=== PATIENT | female | born 1965 | race Caucasian/White ===

== ENCOUNTER 2016-11-28 23:20 | Emergency (ER) | payer OTHER ==
[~2016-11-28] VITALS: Ht 162.6 cm; Wt 76.4 kg
[~2016-11-28 23:20] MED LIST: ALBU8.5H2 INHALATION; AMIT150T PO; BUPR100T15 PO; BUPR1FIL3 SL; ESTR42.52 VAGINAL; HYDR-3797 PO; OMEP40CA36 PO
[2016-11-28 23:23] VITALS: BP 151/81; PULSE 107; RESP 18; O2SAT 96
--- NOTE | 2016-11-28 23:38 | ED.REPORT ---
HPI-Extremity Problem Upper Date of Service Nov 28, 2016 ED Provider: Dr. Pablo 50 y/o female with a hx of Raynaud's disease and polydrug use (currently on Suboxone) presents to the ED for pain management in her right hand fingers today. The pt is wearing a nitrile glove because she has an open wound on her right middle finger. She states "I can't take it off because I will expose my bone". Her fingers began turning a "dusky color" about 8 months ago. Since then , her Raynaud's rapidly progressed. She is seen by Dr. Branch, plastic surgeon, at the wound center. She also discusses pain management with Dr. Castellano who prescribed her Suboxone. The pt has an appointment with her PCP tomorrow but came in today because the pain was unbearable. Nursing Notes Stated Complaint: R HAND PAIN,WOUND NOT HEALING Chief Complaint: Extremity Trauma Nursing Notes Reviewed: Yes Allergies: Coded Allergies: Penicillins (Verified Allergy, Severe, swollen tongue, 11/28/16) propoxyphene (Verified Allergy, Severe, swollen hands, 11/28/16) NSAIDS (Non-Steroidal Anti-Inflamma (Verified Allergy, Unknown, effects peptic ulcers, 11/28/16) Scheduled Albuterol HFA (Proair HFA) 8.5 Gm Hfa.aer.ad 2 PUFFS INHALATION Q4H Amitriptyline (Amitriptyline) 150 Mg Tablet 150 MG PO HS Buprenorphine HCl/Naloxone HCl (Suboxone 8 mg-2 mg Sl Film) 1 Each Film 1 EACH SL BID Bupropion (Bupropion) 100 Mg Tablet 100 MG PO BID Estradiol (Estrace) 42.5 Gm Cream.appl 1 APPLIC VAGINAL mon, wed, sat Omeprazole (Omeprazole) 40 Mg Capsule.dr 40 MG PO DAILY Scheduled PRN Hydroxyzine Pamoate (HydrOXYzine Pamoate) 25 Mg Capsule 75 MG PO TID PRN PRN For Anxiety General Time Seen by MD: 23:38 Chief Complaint Finger injury right 2, Finger injury right 3, Finger injury right 4 Hx Obtained From: Patient Arrived By: Walk-in Onset Occurred: 5 - 8 hours ago Symptom Duration: Since onset Location: : Finger right 3 Quality: Painful Severity: Current: Severe Severity: Maximum: Severe Recent Healthcare: Recent doctor visit Past Medical History Past Medical History Raynaud's disease Hypertension Morbid obesity Chronic back pain Arthritis PTSD Past Surgical History Cholecystectomy Hysterectomy Appendectomy Smoking History Current Every Day Smoker Social History hx of Meth, Heroin and cocaine (currently on Suboxone) Alcohol Use: Denies alcohol use 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 Sees him every 3rd month. takes 2 vicodin 10 mg 4 times a day. Has been unhappy because she feels the effectiveness of vicodin is not working. No work or school Ambulatory Status Independent Review of Systems Reports: Pain in the 2nd, 3rd and 4th fingers on the right hand Reports: open wound on the 3rd right finger Complete sys rev & neg: except as marked. Physical Exam Initial Vital Signs Vital Signs (First) Date Time Temp Pulse Resp B/P Pulse Ox O2 Delivery O2 Flow Rate FiO2 11/28/16 23:23 35.9 107 18 151/81 96 Room Air Initial VS: Reviewed Head / Eyes: Atraumatic, Normocephalic, PERRL Neck: Supple, Non-tender, Full range of motion Respiratory: No respiratory distress Cardiovascular: Intact distal pulses Lower Extremities: Vascular intact, Neuro intact, No swelling, No tenderness Skin: Warm, Dry, No cyanosis Neurologic: Alert, Oriented, Nonfocal General/Constitutional: Awake, Alert, No acute distress Behavior: Positive: Anxious Wrist / Hand: Full range of motion Middle finger of the right hand is macerated inside the glove. The tissue is pale and vascular. The tip of her finger has an ulcer, extending down to the bone. Whitish distal phalanx visible. There is no proximal cellulitis. Interpretation & Diagnostics X-Ray Interpretation Xray Interpretation: Osteomyelitis X-Ray Ordered: Hand right Interpretation / Wet Read by: Wet read ED physician Re-Eval/Medical Decision Med Decision/Clinical Course 50-year-old with Raynaud's disease, and ongoing wound to the tip of the finger of the right hand. X-ray shows erosion and probably osteomyelitis of the tuft. Consideration still being given to a sympathectomy, but this appears to be likely require amputation ultimately. Follow-up with Dr. Branch. Follow-up with referral surgeon and rheumatology as planned. Given a dose of pain meds for tonight, but she will need ongoing pain management from her primary care doctors, and this was explained to her in detail. Discharged now in stable condition. Source of Hx: Old records Re-Evaluation/Progress : Time of Eval: 00:51 Re-Evaluation/Progress Note: Rechecked pt. Discussed imaging results, diagnosis and plan to discharge. Pt understands and agrees with the plan. F/U instruction and RTER warning given. All questions addressed. Counseled Regarding: Diagnosis, Need for follow-up, When/why to return to ED Discharge & Departure Impression: Primary Impression: Raynaud disease Additional Impressions: Chronic wound of extremity Chronic pain Osteomyelitis of finger Disposition: Home Discharge Condition All VS Reviewed: Yes Condition: Stable Additional Instructions: Please follow up with your primary care provider tomorrow for further evaluation and to discuss pain management. Narcotic pain relievers are unfortunately not very good for bone pain either. The solution your problem is more likely surgical. Follow-up with Dr. Branch as soon as practicable. Discuss your pain and management of your Suboxone with Dr. Castellano. Use a nonadherent dressing and changed frequently. Do not leave the finger in a glove without some dressing intervening. The finger will just soak in sweat and discharge, and cause damage and breakdown of the skin. Quit smoking as soon as possible. Your risk for developing this problem on other fingers. Smoking is the one controllable risk factor that you must eliminate. Return to the emergency department in case of any new or worsening symptoms. Referrals: Kingsley Martines DO (PCP) Edmund Branch MD, Howard L MD Scribe Attestation Portions of this note were transcribed by Bin Contreras. I,, personally performed the history, physical exam and medical decision-making;I reviewed and confirmed the accuracy of the information in the transcribed note. Signed by Jess Marie. 11/29/16 copies to: Edmund Branch MD; Kingsley Martines DO; Benedict Castellano MD, Christopher W MD Nov 28, 2016 23:38 Bin Contreras Nov 28, 2016 23:53
[2016-11-29] MEDS ORDERED: oxyCODONE ER 10 mg ER12 Tablet PO ONE
[2016-11-29 01:08] VITALS: BP 112/73; PULSE 96; RESP 16; O2SAT 94
--- NOTE | 2016-11-29 08:24 | DRSVH ---
PROCEDURE: X-RAY FINGERS, TWO VIEWS RIGHT INDICATIONS: chronic wound r/o osteomyelitis middle finger TECHNIQUE: 3 views of the 3rd digit acquired. COMPARISON: [facility], CR, XR FINGER(S) RT 2VW, 09/05/2016, 19:29. FINDINGS: Bones: There is increased cortical erosion involving the tuft of the 3rd distal phalanx with associat ed overlying bony lucency. Soft tissues: There is a soft tissue defect within the distal 3rd digit suggestive of an ulcer incre ased from the prior study. No suspicious soft tissue calcifications. IMPRESSION: 1. Increased cortical erosion of the 3rd distal phalanx compatible with osteomyelitis. Dictated by: Calixto Soni M.D. on 11/29/2016 at 8:20 Approved by: Calixto Soni M.D. on 11/29/2016 at 8:22
== END 2016-11-29 01:03 | disposition home or self-care (01) ==
LOC: SED 23:30
DX: I73.00 Raynaud's syndrome without gangrene (principal); G89.29 Other chronic pain; M86.8X4 Other osteomyelitis, hand; S61.202A Unspecified open wound of right middle finger without damage to nail, initial encounter; X58.XXXA Exposure to other specified factors, initial encounter; Y92.9 Unspecified place or not applicable; Y93.9 Activity, unspecified; Y99.9 Unspecified external cause status; I10 Essential (primary) hypertension; F17.200 Nicotine dependence, unspecified, uncomplicated; Z88.0 Allergy status to penicillin; Z88.5 Allergy status to narcotic agent; Z88.6 Allergy status to analgesic agent

== ENCOUNTER 2016-12-29 13:39 | Emergency (ER) | payer OTHER ==
[~2016-12-29] VITALS: Ht 162.6 cm; Wt 123.2 kg
[2016-12-29 13:42] VITALS: BP 136/81; PULSE 109; RESP 22; O2SAT 97
--- NOTE | 2016-12-29 14:06 | ED.REPORT ---
HPI-Extremity Problem Upper Date of Service Dec 29, 2016 ED Provider: Chester Jain MD History of Present Illness: seen at the wound clinic last week for right 3 finger tip. Has been seen at rheumatology and that was where she was placed on antibiotics. [facility] has appoint for a vascular study on 01/04/2017 with follow up 01/27 per her report. on suboxone, pain is increasing in finger tip. placed on keflex 500 mg 4 times a day and doxycycline stopped on because of vomiting. Nursing Notes Stated Complaint: HAND PAIN/GANGRENE Chief Complaint: Extremity Trauma Nursing Notes Reviewed: Yes Allergies: Coded Allergies: Penicillins (Verified Allergy, Severe, swollen tongue, 12/29/16) propoxyphene (Verified Allergy, Severe, swollen hands, 12/29/16) NSAIDS (Non-Steroidal Anti-Inflamma (Verified Allergy, Unknown, effects peptic ulcers, 12/29/16) Scheduled Albuterol HFA (Proair HFA) 8.5 Gm Hfa.aer.ad 2 PUFFS INHALATION Q4H Amitriptyline (Amitriptyline) 150 Mg Tablet 150 MG PO HS Buprenorphine HCl/Naloxone HCl (Suboxone 8 mg-2 mg Sl Film) 1 Each Film 1 EACH SL BID Bupropion (Bupropion) 100 Mg Tablet 100 MG PO BID Estradiol (Estrace) 42.5 Gm Cream.appl 1 APPLIC VAGINAL mon, wed, sat Omeprazole (Omeprazole) 40 Mg Capsule.dr 40 MG PO DAILY Scheduled PRN Hydroxyzine Pamoate (HydrOXYzine Pamoate) 25 Mg Capsule 75 MG PO TID PRN PRN For Anxiety General Time Seen by MD: 14:04 Chief Complaint Finger injury right 3 Hx Obtained From: Patient Onset Occurred: More than a week ago... (>6 months) Symptom Duration: Since onset Past Medical History Past Medical History Notes: Seen at rheumatology clinic last week. They have ordered a vascular study which is scheduled for 01/04/2017. Per patient has follow up on 01/27. She has been referred to ortho hand by rheumatology. She was seen by Rossana Van. 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 Sees him every 3rd month. takes 2 vicodin 10 mg 4 times a day. Has been unhappy because she feels the effectiveness of vicodin is not working. No work or school. primary care is the residency clinic. have a home 12/29/2016 Ambulatory Status Independent Review of Systems Basic Review of Systems Eyes: Vision NL, No discharge : No dysuria, No frequency Psychiatric: Normal thought content Physical Exam Initial Vital Signs Vital Signs (First) Date Time Temp Pulse Resp B/P Pulse Ox O2 Delivery O2 Flow Rate FiO2 12/29/16 13:42 36.9 109 22 136/81 97 Room Air Initial VS: Reviewed, Vital signs normal General/Constitutional: Well-developed, Well-nourished Head / Eyes: Atraumatic, Normocephalic, PERRL ENT: Mucous membranes moist, Conjunctiva normal, No scleral icterus Neck: Supple, Non-tender, Full range of motion Respiratory: Breath sounds normal, Clear to auscultation, No respiratory distress Cardiovascular: Regular rate & rhythm, Heart sounds normal, Intact distal pulses Abdomen / GI: Soft, Non-tender, No guarding, No rebound, No distention Back: No CVA tenderness Lymphatic: No lymphadenopathy Lower Extremities: Vascular intact, Neuro intact, No swelling, No tenderness Skin: Warm, Dry, No cyanosis Neurologic: Alert, Oriented, Nonfocal Psychiatric: Mood/affect normal, Behavior normal, Normal thought content General/Constitutional: Awake, Alert, No acute distress, Well appearing, Well developed, Well hydrated, Well nourished, Cooperative, Not toxic appearing Respiratory / Chest: Atraumatic, Breath sounds NL, Breath sounds = bilat, No respiratory distress Cardiovascular: Heart rate NL, Regular rhythm, Heart sounds NL, No gallop, No murmurs Upper Extremity / MS: Atraumatic, Inspection NL, Full range of motion, No swelling right 3rd finger tip is missing tissue at distal tip. Erosin on tip of finger show green discloration. No drainage or discharge. Finger color ranges from dusky blue to normal pink coloring. Of note the index and the 4th finger also have faint blue coloring Interpretation & Diagnostics Interpretation & Diagnostics: X-rays indicate osteomyletitis. Ortho locally will not Lab Results Interpretation Result Diagram: 12/29/16 1555 12/29/16 1555 Test 12/29/16 15:55 White Blood Count 12.1th/mm3 (3.8-10.1) Red Blood Count 5.83mil/mm3 (3.90-5.20) Hemoglobin 18.4g/dL (12.0-15.6) Hematocrit 52.0% (35.0-46.0) Mean Corpuscular Volume 89.2fL (81-100) Mean Corpuscular Hemoglobin 31.6pg (27.0-35.0) Mean Corpuscular Hemoglobin Concent 35.4% (32.0-37.0) Red Cell Distribution Width 13.8% (12.3-15.4) Platelet Count 264bil/L (150-400) Neutrophils (%) (Auto) 74.6% (40-74) Lymphocytes (%) (Auto) 16.7% (14-46) Monocytes (%) (Auto) 8.2% (4-12) Eosinophils (%) (Auto) 0.1% (0-5) Basophils (%) (Auto) 0.1% (0-3) Sodium Level 140mEq/L (134-144) Potassium Level 3.3mEq/L (3.5-5.2) Chloride Level 96mEq/L (97-108) Carbon Dioxide Level 27mmol/L (18-29) Blood Urea Nitrogen 8mg/dL (6-24) Creatinine 0.64mg/dL (0.57-1.00) Estimat Glomerular Filtration Rate 139mL/min (>59) Glucose Level 119mg/dL (60-99) Lactic Acid Level 1.5mmol/L (0.4-2.0) Calcium Level 9.9mg/dL (8.5-10.1) Total Bilirubin 0.6mg/dL (0.0-1.2) Aspartate Amino Transf (AST/SGOT) 33U/L (0-50) Alanine Aminotransferase (ALT/SGPT) 22U/L (0-32) Alkaline Phosphatase 111U/L (25-150) Total Protein 8.2g/dL (6.4-8.4) Albumin 4.6g/dL (3.4-5.0) Re-Eval/Medical Decision Med Decision/Clinical Course review of images this year document the progression of the osteomyletitis. Patient has been referred to and was seen there last week. Is receiving wound care locally. Patient with vascular study scheduled for 01/04. Has been referred to Hand surgery at the . Dr. Jain discussed with Dr. Virk. She feels services need to come from the because of the complexity of the patient. Attempted to talk with rheumatology, no one steam station supervisor on the weekend. Buster call on Saturday to see if appointment can be moved up. No sign of compartment syndrome. Discharge & Departure Impression: Primary Impression: Osteomyelitis of finger Additional Impression: Chronic pain Chronic pain type: other chronic pain Qualified Code: G89.29 - Other chronic pain Disposition: Home Patient Instructions: Osteomyelitis (ED) Additional Instructions: Your white count is mildly elevated today at 12. The x-ray of your hand shows osteomyelitis. this appears to be a chronic condition that needs to be addressed. You have been seen at the rheumatology and have been referred to a hand surgeon. You are scheduled for a vascular study on 01/04/2017 with followup scheduled for 01/27/2017. I feel you need to be seen sooner. The study that has been scheduled for Saturday is fine but I am hoping to have you seen sooner. We have called rheumatology today and no one is steam station supervisor till Saturday. Please call the office on Saturday and state seen in the ER and the recommendation is to be seen sooner. I will call on Saturday also but it will not happen till later in the day. I am sorry this is happening to you! Referrals: Florin Davis DO (PCP) EDSupervising Provider for APC: Chester Jain MD Attending Statement Attending attestation: I saw this patient in conjunction with Sarita ALVAREZ. I was present for all fontana portions of the history taking and physical examination. In summary, the patient has a history of vasculitis and is presenting with chronic/progressive ischemia of her digit and associated osteomyelitis. She had previously been seen and evaluated by orthopedic surgery as well as rheumatology. I had a long conversation with Dr. Virk about the management of this patient. Dr. Virk has already discussed the patient in depth with her colleague who saw the patient recently in clinic. It is not felt that the patient is a candidate for immediate digital amputation and that this can be an examination on an outpatient basis. They already discussed the patient with the [facility] and referred her to the [facility] for further management. Per my conversation with Dr. Virk admission is not appropriate and emergent amputation would likely lead to non-healing. Dr. Hernandez feels that the patient requires digital sympathectomy and that she should be discharged to follow-up at the [facility] as previously arranged. Chester Jain MD copies to: Florin Davis Beck O MD Dec 29, 2016 14:06 Sarita Quintero Dec 29, 2016 14:36
[2016-12-29] MEDS ORDERED: fentaNYL-PF 50 mCg/mL 2 mL Inj IVPUSH ONE ×2 (14:45→17:20)
[2016-12-29] MEDS ORDERED: 0.9% Sodium Chloride 1,000 ML IV ONE (14:45)
[2016-12-29 16:05] LABS: BASOPHILS % (AUTO) 0.1 % (0-3); EOSINOPHILS % (AUTO) 0.1 % (0-5); MONOCYTES % (AUTO) 8.2 % (4-12); Mean Corpuscular Hemoglobin 31.6 pg (27.0-35.0); Mean Corpuscular Volume 89.2 fL (81-100); NEUTROPHILS % (AUTO) 74.6 % (40-74); Platelet Count 264 bil/L (150-400)
[2016-12-29 18:34] VITALS: BP 132/71; PULSE 83; O2SAT 98
[2016-12-29 18:56] VITALS: BP 132/71; PULSE 83; RESP 22; O2SAT 98
== END 2016-12-29 18:57 | disposition home or self-care (01) ==
LOC: SED 13:39
DX: M86.141 Other acute osteomyelitis, right hand (principal); G89.29 Other chronic pain; I10 Essential (primary) hypertension; F43.10 Post-traumatic stress disorder, unspecified; F17.200 Nicotine dependence, unspecified, uncomplicated; Z88.0 Allergy status to penicillin; Z88.8 Allergy status to other drugs, medicaments and biological substances; Z88.6 Allergy status to analgesic agent
CPT/HCPCS: 36415; 80053; 83605; 85025; 87040; 96374; 96376; 99285; J3010; J7030